=== PATIENT | male | born 2000 | race Caucasian/White ===

== ENCOUNTER 2025-03-21 11:43 | Inpatient (IN) | payer BC, MEDICAID ==
[~2025-03-21] VITALS: Ht 188 cm; Wt 81.6 kg
[2025-03-21 12:03] LABS: PLATELET COUNT (AUTO) 331 K/uL (152-348); RED BLOOD CELL COUNT(AUTO) 5.51 MIL/uL (4.06-5.63); RED CELL DISTRIBUTION WIDTH 13.7 % (12.1-16.2); WHITE BLOOD COUNT (AUTO) 11.3 K/uL (3.6-10.2)
[2025-03-21] MEDS ORDERED: ONDANSETRON 4 MG/2 ML VIAL ONE (12:04)
[2025-03-21] MEDS ORDERED: diphenhydrAMINE 50 MG/1 ML VIAL ONE (12:04)
[2025-03-21] MEDS ORDERED: LIDOCAINE VISCUS 2% 15 ML UDC ONE (12:05)
[2025-03-21] MEDS ORDERED: METOCLOPRAMIDE HCL 10 MG/2 ML VIAL ONE (12:05)
[2025-03-21] MEDS ORDERED: FAMOTIDINE. 20 MG/2 ML VIAL IV ONE (12:05)
[2025-03-21] MEDS ORDERED: MAG HYDROX/AL HYDROX/SIMETH 30 ML LIQUID UDC ONE (12:06)
[2025-03-21 12:14] LABS: ASPARTATE AMINOTRANSFERASE 16.0 U/L (15-37); CREATININE 1.1 mg/dL (0.6-1.3); SODIUM SERUM 136.0 mmol/L (136-145); TOTAL PROTEIN, SERUM 8.5 g/dL (6.4-8.2); UREA NITROGEN, BLOOD 16.0 mg/dL (7-18)
[2025-03-21] MEDS: METOCLOPRAMIDE HCL 10 MG/2 ML VIAL IV ONE (12:16)
[2025-03-21] MEDS: FAMOTIDINE. 20 MG/2 ML VIAL IV ONE (12:16)
[2025-03-21] MEDS: diphenhydrAMINE 50 MG/1 ML VIAL IV ONE (12:16)
[2025-03-21] MEDS: ONDANSETRON 4 MG/2 ML VIAL IV ONE (12:16)
[2025-03-21] MEDS: LIDOCAINE VISCUS 2% 15 ML UDC MM ONE (12:17)
[2025-03-21] MEDS: MAG HYDROX/AL HYDROX/SIMETH 30 ML LIQUID UDC PO ONE (12:17)
[2025-03-21] MEDS ORDERED: MORPHINE SULFATE 2 MG/1 ML DISP.SYRIN ONE (12:18)
[2025-03-21 12:21] LABS: ETHANOL < 3 MG/DL (0-10)
[2025-03-21] MEDS: MORPHINE SULFATE 2 MG/1 ML DISP.SYRIN IV ONE (12:25)
[2025-03-21] MEDS: IV NORMAL SALINE 1000 ML BAG IV ONE (12:25)
[2025-03-21 13:40] LABS: *BILIRUBIN,URIN NEGATIVE (NEGATIVE); *CLARITY,URINE CLEAR (CLEAR); *COLOR,URINE YELLOW (YELLOW); *KETONES,URINE 2+ (NEGATIVE); *PROTEIN,URINE NEGATIVE (NEGATIVE); *UROBILINOGEN,URINE 0.2 E.U./dl (NORMAL); LEUKOCYTE ESTERASE ,URINE NEGATIVE (NEGATIVE); NITRITE, URINE NEGATIVE (NEGATIVE); UGLUCOSE NEGATIVE (NEGATIVE)
[2025-03-21 13:43] LABS: *BLOOD, URINE TRACE (NEGATIVE)
[2025-03-21 13:49] LABS: URINE AMORPHOUS URATE FEW /HPF
[2025-03-21 13:54] LABS: *AMPHETAMINE, URINE NEGATIVE (NEGATIVE); *BARBITURATE, URINE NEGATIVE (NEGATIVE); *BENZODIAZEPINE, URINE NEGATIVE (NEGATIVE); *CANNABINOID, URINE POSITIVE (NEGATIVE); *COCCAINE, URINE NEGATIVE (NEGATIVE); *OPIATE, URINE POSITIVE (NEGATIVE); *PHENCYCLIDINE SCREEN,URINE NEGATIVE (NEGATIVE); FENTANYL, URINE NEGATIVE (NEGATIVE)
[2025-03-21] MEDS: IV NS 1000 ML 1,000 ML IV SCH (14:15)
[2025-03-21] MEDS: POTASSIUM CHLORIDE 50 ML IV SCH (14:15)
[2025-03-21] MEDS ORDERED: ACETAMINOPHEN 325 MG TABLET PO PRN (14:15)
[2025-03-21] MEDS ORDERED: METO10TA3 PO (15:37)
[2025-03-21] MEDS ORDERED: PRED20TA PO (15:38)
[2025-03-21] MEDS ORDERED: LANS30CA56 PO (15:38)
[2025-03-21] MEDS ORDERED: LURA20TA PO (15:39)
[2025-03-21] MEDS ORDERED: LORA-259 PO (15:41)
[2025-03-21] MEDS ORDERED: ONDA-104 PO (15:42)
[2025-03-21] MEDS ORDERED: ESCI-9 PO (15:55)
[2025-03-21] MEDS ORDERED: [UNRECOGNIZED DRUG - OTHER] PO (15:56)
[2025-03-21] MEDS ORDERED: APPLE CIDER VINEGAR PO (15:57)
[2025-03-21] MEDS ORDERED: AMOX500C2 PO (15:58)
[2025-03-21] MEDS ORDERED: ASHWAGANDHA PO (15:59)
[2025-03-21] MEDS ORDERED: CAPS42.514 TP (16:07)
[2025-03-21] MEDS ORDERED: CLAR-45 PO (16:07)
[2025-03-21] MEDS ORDERED: MULT-225 PO (16:08)
[2025-03-21] MEDS ORDERED: FAMO20TA8 PO (16:09)
[2025-03-21] MEDS ORDERED: QUET50TA PO (16:10)
[2025-03-21 16:21] VITALS: BP 123/54; TEMP 99.2; O2SAT 98
[2025-03-21] MEDS: IV NS 1000 ML 1,000 ML IV PRN (16:58)
[2025-03-21] MEDS: METOCLOPRAMIDE HCL 10 MG/2 ML VIAL IV SCH (16:59)
[2025-03-21] MEDS: MORPHINE SULFATE 2 MG/1 ML DISP.SYRIN IVP PRN (17:29)
[2025-03-21 20:00] VITALS: BP 114/50; TEMP 99; O2SAT 98
[2025-03-21] MEDS: LURASIDONE HCL 20 MG PO SCH (20:38)
[2025-03-21] MEDS: QUETIAPINE FUMARATE 25 MG TABLET PO SCH (20:38)
[2025-03-21] MEDS: HEPARIN SODIUM,PORCINE 5,000 UNITS/ML VIAL SQ SCH (20:40)
[2025-03-22] MEDS: ONDANSETRON 4 MG/2 ML VIAL IV PRN (00:52)
[2025-03-22] MEDS: LORAZEPAM 1 MG TABLET PO PRN (03:10)
[2025-03-22 06:00] VITALS: BP 108/58; TEMP 98.9; O2SAT 99
[2025-03-22] MEDS: PANTOPRAZOLE SODIUM 40 MG TABLET.DR PO SCH (06:28)
[2025-03-22 06:55] LABS: PLATELET COUNT (AUTO) 240 K/uL (152-348); RED BLOOD CELL COUNT(AUTO) 4.44 MIL/uL (4.06-5.63); RED CELL DISTRIBUTION WIDTH 13.2 % (12.1-16.2); WHITE BLOOD COUNT (AUTO) 7.6 K/uL (3.6-10.2)
[2025-03-22 07:08] LABS: ASPARTATE AMINOTRANSFERASE 14.0 U/L (15-37); CREATININE 1.0 mg/dL (0.6-1.3); SODIUM SERUM 141.0 mmol/L (136-145); TOTAL PROTEIN, SERUM 6.3 g/dL (6.4-8.2); UREA NITROGEN, BLOOD 10.0 mg/dL (7-18)
[2025-03-22] MEDS: ESCITALOPRAM OXALATE 10 MG TABLET PO SCH (08:54)
[2025-03-22 11:08] VITALS: BP 113/64; TEMP 97.9; O2SAT 96
[2025-03-22 15:58] VITALS: BP 120/59; TEMP 98.6; O2SAT 96
[2025-03-22 19:00] VITALS: BP 111/52; TEMP 98.1; O2SAT 98
[2025-03-23 06:15] VITALS: BP 141/81; TEMP 98.4; O2SAT 99
[2025-03-23] MEDS: PANTOPRAZOLE SODIUM 40 MG VIAL IV SCH (07:06)
[2025-03-23 11:40] VITALS: BP 121/75; TEMP 98.3; O2SAT 98
== END 2025-03-23 11:45 | disposition other institution (70) | DRG 395 ==
LOC: ER 11:43 → MEDSURG3 15:30
PROVIDERS: ADMIT Internal Medicine; ATTEND Internal Medicine
DX: R11.15 Cyclical vomiting syndrome unrelated to migraine (principal); E87.6 Hypokalemia; Z87.19 Personal history of other diseases of the digestive system; F12.10 Cannabis abuse, uncomplicated; R74.8 Abnormal levels of other serum enzymes
CPT/HCPCS: 36415; 83690; 84100; 85025; 86140; A4606; A4663; G0378; G0480; J1200; J1308; J1644; J2270; J2405; J2470; J2765; J3480; J7040; J7042